=== PATIENT | female | born 1975 | race Caucasian/White ===

== ENCOUNTER 2022-09-23 14:01 | Emergency (ER) | payer BC, SELFPAY ==
[2022-09-23 14:09] VITALS: BP 164/84; PULSE 79; RESP 18; TEMP 37.4; O2SAT 98; BMI 35.9
--- NOTE | 2022-09-23 14:27 | ED.ABDPAIN1 ---
HPI - Abdominal Pain General Chief Complaint: Abdominal Pain Stated Complaint: FLANK PAIN RIGHT SIDE Time Seen by Provider: 09/23/22 14:27 Source: patient Mode of arrival: walk-in Limitations: no limitations History of Present Illness HPI narrative: she has complaint of right upper quadrant and epigastric discomfort. She felt fine over the weekend but today after having chicken and biscuits at work this morning at 8:30 she started developing the discomfort. It does radiate into her back. She has no previous history of biliary dysfunction or stones. She does not believe she has a family history of gallbladder dysfunction. She's not had vomiting diaphoresis chest pain shortness breath or difficulty moving about. She came over the hospital after work. She does have a local primary care doctor. She just was he violated for a wellness exam recently and was have blood work done but she did not get finished yet. She does not have any chest pain there is no radiation of discomfort to her neck Chol or arms. She does not want anything for pain at this time. She is not on any antibiotics or analgesics. Related Data Home Medications Medication Instructions Recorded Confirmed insulin glargine 100 unit/mL (3 35 unit subcut QAM 09/23/22 09/23/22 mL) subcutaneous pen (Basaglar Tempo Pen (U-100) Insulin) lisinopril 10 mg tablet 10 mg PO DAILY 09/23/22 09/23/22 venlafaxine 75 mg tablet 75 mg PO DAILY 09/23/22 09/23/22 Allergies Allergy/AdvReac Type Severity Reaction Status Date / Time No Known Drug Allergies Allergy Verified 09/23/22 14:08 [facility] Social History Smoking status: Never smoker Exam Narrative Exam Narrative: awake alert good historian pleasant appears in mild discomfort. Constitutional vital signs are stable she is afebrile. I examination shows no scleral icterus pallor or anemia. The Respiratory lungs are clear with no wheezes rales or rhonchi there is no pleural or pericardial rub. Back shows no evidence of shingles or zoster. Gastrointestinal shows very mild discomfort with aggressive palpation in the right upper quadrant only. Otherwise is no abdominal findings or tenderness to palpation. No abdominal incisions are noted. Constitutional Vital Signs - 24 hr 09/23/22 14:09 Temperature 99.4 F Pulse Rate [Monitor] 79 Respiratory Rate 18 Blood Pressure [Left Arm] 164/84 H Pulse Oximetry 98 Oxygen Delivery Method Room Air Course Vital Signs Vital signs: Vital Signs Temperature 99.4 F 09/23/22 14:09 Pulse Rate 79 09/23/22 14:09 Respiratory Rate 18 09/23/22 14:09 Blood Pressure 164/84 H 09/23/22 14:09 Pulse Oximetry 98 09/23/22 14:09 Oxygen Delivery Method Room Air 09/23/22 14:09 Temperature 99.4 F 09/23/22 14:09 Pulse Rate 79 09/23/22 14:09 Respiratory Rate 18 09/23/22 14:09 Blood Pressure 164/84 H 09/23/22 14:09 Pulse Oximetry 98 09/23/22 14:09 Oxygen Delivery Method Room Air 09/23/22 14:09 MDM - Abdominal Pain MDM Narrative Medical decision making narrative: this patient's symptoms would suggest biliary dysfunction. We were able to obtain a gallbladder ultrasound here in the Emergency Room there is no acute findings. Her laboratory testing was equally unremarkable on a critical basis. Nonetheless her symptoms are suggestive of biliary disease and for that reason I recommended follow-up with her primary care doctor. I would like her to refrain from fatty foods. Should she develop fever or worse pain she can return. Lab Data Labs: Lab Results 09/23/22 Range/Units 14:30 WBC 9.0 (4.0-11.0) 10^3/uL RBC 5.08 (4.20-5.40) 10^6/uL Hgb 14.3 (12.0-16.0) g/dL Hct 42.5 (36.0-48.0) % MCV 83.7 (81.0-99.0) fL MCH 28.1 (26.7-34.0) pg MCHC 33.6 (29.9-35.2) g/dL RDW 13.2 (11.0-15.0) % Plt Count 334 (150-450) 10^3/uL MPV 10.2 (9.5-13.5) fL Neut % (Auto) 70.1 (43.0-75.0) % Lymph % (Auto) 20.9 (20.5-60.0) % [place] % (Auto) 5.8 (1.7-12.0) % Eos % (Auto) 2.0 (0.9-7.0) % Baso % (Auto) 0.9 (0.2-2.0) % Neut # (Auto) 6.3 (1.4-6.5) 10^3/uL Lymph # (Auto) 1.9 (1.2-3.8) 10^3/uL [place] # (Auto) 0.5 (0.3-0.8) 10^3/uL Eos # (Auto) 0.2 (0.0-0.7) 10^3/uL Baso # (Auto) 0.1 (0.0-0.1) 10^3/uL Abs Immat Gran (auto) 0.03 (0.00-0.03) 10^3/uL Imm/Tot Granulo (auto) 0.3 (0.0-0.5) % Sodium 136 (136-145) mmol/L Potassium 4.2 (3.5-5.1) mmol/L Chloride 99 (98-107) mmol/L Carbon Dioxide 25.1 (21.0-32.0) mmol/L Anion Gap 16.1 BUN 13.0 (7.0-18.0) mg/dL Creatinine 0.70 (0.55-1.02) mg/dL Est GFR ( Amer) >60 (>=60) Est GFR (Non-Af Amer) >60 (>=60) BUN/Creatinine Ratio 18.6 Glucose 210 H (74-106) mg/dL Calcium 9.4 (8.5-10.1) mg/dL Total Bilirubin 0.2 (0.2-1.0) mg/dL AST 9 L (15-37) U/L ALT 19 (14-59) U/L Alkaline Phosphatase 95 (46-116) U/L Total Protein 8.6 H (6.4-8.2) g/dL Albumin 4.0 (3.4-5.0) g/dL Globulin 4.6 g/dL Albumin/Globulin Ratio 0.9 Lipase 335.0 (73.0-393.0) U/L Discharge Plan Discharge Chief Complaint: Abdominal Pain Clinical Impression: Intermittent right upper quadrant abdominal pain Patient Disposition: Home, Self-Care Time of Disposition Decision: 15:38 Prescriptions / Home Meds: No Action lisinopril 10 mg tablet 10 mg PO DAILY insulin glargine [Basaglar Tempo Pen(U-100)Insln] 100 unit/mL (3 mL) insulin pen 35 unit subcut QAM venlafaxine 75 mg tablet 75 mg PO DAILY Additional Instructions: avoid fatty/greasy foods. Return for fever or worse pain. Follow-up with primary care doctor for further testing Stand Alone Forms: Portal Instructions Referrals: Josr Estrada MD [Primary Care Provider] - 1 week
--- NOTE | 2022-09-23 14:39 | US_ITS ---
The [address] [address] Patient Name: HARISH BUTLER MRN: [id number] date: 1975 Sex: F Assigned Patient Location: ER Current Patient Location: ER Accession/Order Number: [id number] Exam Date: 09/23/2022 14:45 Report Date: 09/23/2022 15:29 At the request of: JOSE TREVIZO Procedure: US right upper quadrant RIGHT UPPER QUADRANT ABDOMINAL ULTRASOUND: 09/23/2022 11:45 AM PDT HISTORY: ruq pain TECHNIQUE: Real-time sonography of the right upper quadrant was performed. Color and spectral Doppler were used to assess select abdominal vasculature. COMPARISON: None. FINDINGS: PANCREAS: Normal appearance of the visualized pancreas. GALLBLADDER: No gallstones or sludge. No gallbladder wall thickening or pericholecystic fluid. BILIARY DUCTS: Extrahepatic bile duct at the salvador hepatis measures 5 mm (within normal limits given patient's age). No intrahepatic or extrahepatic ductal dilatation. RIGHT KIDNEY: Kidney measures 11.8 x 6.2 x 5.7 cm for a volume of 218 mL The kidney is within normal limits for size and echogenicity. No hydronephrosis, solid lesion, or stones demonstrated. LIVER: Diffusely increased echogenicity of the liver. No suspicious lesion. Liver contour is smooth. VASCULATURE: -No thrombus within the proximal hepatic veins. -Antegrade flow in the main portal vein. IMPRESSION: 1. No evidence of acute cholecystitis. 2. Diffuse increased echogenicity of the liver, finding commonly seen in the setting of hepatic steatosis. Electronically authenticated by: KIM SANCHEZ Date: 09/23/2022 15:29
[2022-09-23 14:47] LABS: Basophils Absolute Auto 0.1 10^3/uL (0.0-0.1); Basophils Percent Auto 0.9 % (0.2-2.0); Eosinophils Absolute Auto 0.2 10^3/uL (0.0-0.7); Hematocrit 42.5 % (36.0-48.0); Hemoglobin 14.3 g/dL (12.0-16.0); Immature Granulocytes Abs Auto 0.03 10^3/uL (0.00-0.03); Immature Granulocytes Pct Auto 0.3 % (0.0-0.5); Lymphocytes Absolute Auto 1.9 10^3/uL (1.2-3.8); Lymphocytes Percent Auto 20.9 % (20.5-60.0); Mean Corpuscular HGB Conc 33.6 g/dL (29.9-35.2); Mean Corpuscular Hemoglobin 28.1 pg (26.7-34.0); Mean Corpuscular Volume 83.7 fL (81.0-99.0); Mean Platelet Volume 10.2 fL (9.5-13.5); Monocytes Absolute Auto 0.5 10^3/uL (0.3-0.8); Monocytes Percent Auto 5.8 % (1.7-12.0); Neutrophils Absolute Auto 6.3 10^3/uL (1.4-6.5); Neutrophils Percent Auto 70.1 % (43.0-75.0); Platelet Count 334 10^3/uL (150-450); Red Blood Count 5.08 10^6/uL (4.20-5.40); Red Cell Distribution Width 13.2 % (11.0-15.0)
[2022-09-23 15:03] LABS: Alanine Aminotransferase 19 U/L (14-59); Albumin Globulin Ratio 0.9; Alkaline Phosphatase 95 U/L (46-116); Anion Gap 16.1; Aspartate Amino Transferase 9 U/L (15-37); BUN Creatinine Ratio 18.6; Bilirubin Total 0.2 mg/dL (0.2-1.0); Calcium 9.4 mg/dL (8.5-10.1); Carbon Dioxide 25.1 mmol/L (21.0-32.0); Chloride 99 mmol/L (98-107); Estimated GFR (African America >60 (>=60); Estimated GFR (Non-African Ame >60 (>=60); Globulin 4.6 g/dL; Glucose 210 mg/dL (74-106); Potassium 4.2 mmol/L (3.5-5.1); Sodium 136 mmol/L (136-145); Total Protein 8.6 g/dL (6.4-8.2)
== END 2022-09-23 15:45 | disposition home or self-care (01) ==
PROVIDERS: Emergency Provider Emergency Medicine Emergency Medical Services; PCP Family Medicine
DX: R10.11 Right upper quadrant pain (principal); Z79.899 Other long term (current) drug therapy; Z79.4 Long term (current) use of insulin
CPT/HCPCS: 36415; 76705; 80053; 83690; 85025; 99284

== ENCOUNTER 2022-10-21 10:31 | Outpatient (OUT) | payer BC, SELFPAY ==
[2022-10-21 11:59] LABS: Basophils Absolute Auto 0.1 10^3/uL (0.0-0.1); Eosinophils Absolute Auto 0.3 10^3/uL (0.0-0.7); Eosinophils Percent Auto 3.4 % (0.9-7.0); Hemoglobin 14.4 g/dL (12.0-16.0); Immature Granulocytes Abs Auto 0.02 10^3/uL (0.00-0.03); Immature Granulocytes Pct Auto 0.3 % (0.0-0.5); Lymphocytes Absolute Auto 1.9 10^3/uL (1.2-3.8); Lymphocytes Percent Auto 24.3 % (20.5-60.0); Mean Corpuscular HGB Conc 33.5 g/dL (29.9-35.2); Mean Corpuscular Hemoglobin 27.8 pg (26.7-34.0); Mean Platelet Volume 10.7 fL (9.5-13.5); Monocytes Absolute Auto 0.5 10^3/uL (0.3-0.8); Monocytes Percent Auto 6.7 % (1.7-12.0); Neutrophils Absolute Auto 5.1 10^3/uL (1.4-6.5); Neutrophils Percent Auto 64.3 % (43.0-75.0); Platelet Count 318 10^3/uL (150-450); Red Blood Count 5.18 10^6/uL (4.20-5.40); Red Cell Distribution Width 13.3 % (11.0-15.0); White Blood Count 7.9 10^3/uL (4.0-11.0)
[2022-10-21 12:11] LABS: Estimated Average Glucose 260 mg/dL; Glycohemoglobin A1C 10.7 % (4.5-6.2)
[2022-10-21 12:18] LABS: Alanine Aminotransferase 22 U/L (14-59); Albumin Globulin Ratio 0.9; Albumin Level 3.8 g/dL (3.4-5.0); Alkaline Phosphatase 87 U/L (46-116); Anion Gap 13.3; Aspartate Amino Transferase 12 U/L (15-37); BUN Creatinine Ratio 15.9; Bilirubin Direct <0.1 mg/dL (0.0-0.2); Bilirubin Total 0.2 mg/dL (0.2-1.0); Calcium 8.9 mg/dL (8.5-10.1); Carbon Dioxide 25.4 mmol/L (21.0-32.0); Chloride 100 mmol/L (98-107); Chol HDL Ratio 5.5; Cholesterol 268 mg/dL (<=200); Estimated GFR (African America >60 (>=60); Estimated GFR (Non-African Ame >60 (>=60); Globulin 4.1 g/dL; Glucose 266 mg/dL (74-106); HDL Cholesterol 49 mg/dL (40-60); Potassium 4.7 mmol/L (3.5-5.1); Sodium 134 mmol/L (136-145); Thyroid Stimulating Hormone 2.621 uIU/mL (0.358-3.740); Total Protein 7.9 g/dL (6.4-8.2); Triglycerides 211 mg/dL (<=150); VLDL CHOLESTEROL 42.2 mg/dL
== END 2022-10-21 10:32 | disposition home or self-care (01) ==
LOC: LAB 10:35
PROVIDERS: PCP Family Medicine; Visit Provider Family Medicine
DX: Z00.00 Encounter for general adult medical examination without abnormal findings (principal); E55.9 Vitamin D deficiency, unspecified
CPT/HCPCS: 36415; 80048; 80061; 80076; 82306; 83036; 84443; 85025